=== PATIENT | female | born 1975 | race Caucasian/White ===

== ENCOUNTER 2019-07-20 09:30 | Emergency (ER) | payer OTHER ==
[~2019-07-20] VITALS: Ht 165.1 cm; Wt 70.3 kg
[2019-07-20] MEDS ORDERED: ACET325 PO (09:54)
[2019-07-20] MEDS ORDERED: Cleocin HCl300 MG PO (10:15)
== END 2019-07-20 10:26 | disposition home or self-care (01) ==
LOC: ER 09:30
DX: K04.7 Periapical abscess without sinus (principal); K02.9 Dental caries, unspecified; Z88.0 Allergy status to penicillin; Z88.2 Allergy status to sulfonamides; Z87.891 Personal history of nicotine dependence
CPT/HCPCS: 99282

== ENCOUNTER 2019-08-05 15:33 | Emergency (ER) | payer OTHER ==
[~2019-08-05] VITALS: Ht 165.1 cm; Wt 69.0 kg
[~2019-08-05 15:33] MED LIST: ACET325 PO; Cleocin HCl300 MG PO
== END 2019-08-05 17:42 | disposition home or self-care (01) ==
LOC: ER 15:33
DX: F32.9 Major depressive disorder, single episode, unspecified (principal); F41.9 Anxiety disorder, unspecified; F43.9 Reaction to severe stress, unspecified; Z72.89 Other problems related to lifestyle; Z88.2 Allergy status to sulfonamides; Z88.0 Allergy status to penicillin; Z87.891 Personal history of nicotine dependence
CPT/HCPCS: 99284

== ENCOUNTER → 2019-12-22 | Outpatient (CLI) | payer OTHER ==
[2019-12-27 08:08] LABS: HPV 16 Negative (Negative); HPV 18 Negative (Negative); HPV OTHER HR TYPES Negative (Negative)
== END | disposition home or self-care (01) ==
LOC: LAB 19:29 → LAB SHORT 19:29
PROVIDERS: Nurse Practitioner Family
DX: Z01.419 Encounter for gynecological examination (general) (routine) without abnormal findings (principal)
CPT/HCPCS: 87624; G0145

== ENCOUNTER 2020-03-08 17:56 | Inpatient (IN) | payer OTHER ==
[~2020-03-08] VITALS: Ht 165.1 cm; Wt 65.8 kg
[~2020-03-08 17:56] MED LIST changes: +ESCI10 PO; +MIRALAX17 GM PO; +MULTI-VITAMIN1 EAC2 PO; +Naltrexone HCl50 MG PO; +OPTISOURCE TAB1 EAC1 PO; +SLOW FE142 M1 PO
[2020-03-08 19:24] LABS: BASOPHILS ABSOLUTE AUTO 0.02 K/mm3 (0.00-0.23); BASOPHILS PERCENT AUTO 0 % (0-2); EOSINOPHILS ABSOLUTE AUTO 0.03 K/mm3 (0.00-0.68); EOSINOPHILS PERCENT AUTO 1 % (0-6); Hematocrit 43.1 % (33.0-51.0); Hemoglobin 13.6 g/dL (11.5-16.0); IMMATURE GRAN ABSOLUTE AUTO 0.01 K/mm3 (0.00-0.10); IMMATURE GRAN PERCENT AUTO 0 % (0-1); LYMPHOCYTES PERCENT AUTO 14 % (21-46); MONOCYTES ABSOLUTE AUTO 0.22 K/mm3 (0.16-1.47); MONOCYTES PERCENT AUTO 3 % (4-13); Mean Corpuscular HGB 25.6 pg (26.0-34.0); Mean Corpuscular HGB Conc 31.6 g/dL (31.5-36.5); Mean Corpuscular Volume 81 fL (80-100); NEUTROPHILS ABSOLUTE AUTO 5.32 K/mm3 (1.96-9.15); NEUTROPHILS PERCENT AUTO 82 % (41-73); Platelet Count 236 K/mm3 (150-400); RDW Coefficient Variation 26.8 % (11.7-14.2); RDW Standard Deviation 74.5 fL (35.1-46.3); Red Blood Cell Count 5.32 M/mm3 (3.80-5.20)
[2020-03-08 19:43] LABS: Alanine Aminotransfer (ALT/SGP 29 U/L (12-78); Albumin, Blood 4.3 g/dL (3.4-5.0); Albumin/Globulin Ratio 1.1 (0.8-1.8); Alk Phos 87 U/L (50-136); Anion Gap 8 mmol/L (6-16); Aspartate Aminotrans (AST/SGOT 21 U/L (12-37); Bilirubin, Total 0.7 mg/dL (0.1-1.0); Blood Urea Nitrogen 5 mg/dL (8-24); Bun/Creatinine Ratio 12.2 (12.0-20.0); CO2, Blood 22 mmol/L (21-32); Calcium, Blood 8.9 mg/dL (8.5-10.1); Chloride, Blood 106 mmol/L (98-108); Creatinine, Blood 0.41 mg/dL (0.40-1.00); Glomerular Filtration Rate >60 (60-); Glucose, Blood 113 mg/dL (70-99); Sodium, Blood 136 mmol/L (136-145); Total Protein, Blood 8.3 g/dL (6.4-8.2)
[2020-03-08 20:34] LABS: Source, Urine Clean Catch
[2020-03-08 20:39] LABS: Bilirubin, Urine Neg (Neg); Blood, Urine Neg (Neg); Glucose Qualitative, Urine Neg (Neg); Ketones, Urine 4+ (Neg); Leukocyte Esterase, Urine Neg (Neg); Nitrite, Urine Neg (Neg); Protein, Urine Neg (Neg); Specific Gravity, Urine 1.015 (1.003-1.022); Urobilinogen, Urine NORM (Normal)
[2020-03-08 20:41] LABS: Appearance, Urine Clear (Clear); Color, Urine Yellow (P-Yellow)
--- NOTE | 2020-03-09 01:32 | NUR ---
ARRIVAL PT ARRIVED TO UNIT FROM ER VIA WHEELCHAIR. PT TRANSFERED SELF TO BED WITH NO ASSISTANCE. STEADY ON HER FEET. [id number]. ORIENTED TO ROOM AND UNIT. EDUCATED CAPTAIN CANNERY TENDER LIGHT AND NPO STATUS. PT REPORTS SOME NAUSEA AND INCREASING PAIN. WILL ADMINISTER MEDS PER ORDERS. PT CURRENTLY RESTING IN BED IN SEMI FOWLERS, DENIES FURTHER NEEDS AT THIS TIME.
--- NOTE | 2020-03-09 04:29 | NUR ---
SHIFT SUMMARY NO CHANGES SINCE ARRIVAL TO UNIT. PT HAS BEEN RESTING IN BED DENIES PAIN AND NAUSEA SINCE MEDICATED PER EMAR. PT NPO PER ORDERS, PAIN LOCALIZED TO ABDOMEN. NO BOWEL MOVEMENTS DURING SHIFT.
[2020-03-09 15:11] LABS: BASOPHILS ABSOLUTE AUTO 0.02 K/mm3 (0.00-0.23); BASOPHILS PERCENT AUTO 0 % (0-2); EOSINOPHILS ABSOLUTE AUTO 0.06 K/mm3 (0.00-0.68); EOSINOPHILS PERCENT AUTO 1 % (0-6); Hematocrit 43.7 % (33.0-51.0); IMMATURE GRAN ABSOLUTE AUTO 0.01 K/mm3 (0.00-0.10); IMMATURE GRAN PERCENT AUTO 0 % (0-1); LYMPHOCYTES ABSOLUTE AUTO 2.04 K/mm3 (0.84-5.20); LYMPHOCYTES PERCENT AUTO 29 % (21-46); MONOCYTES ABSOLUTE AUTO 0.47 K/mm3 (0.16-1.47); MONOCYTES PERCENT AUTO 7 % (4-13); Mean Corpuscular HGB 26.3 pg (26.0-34.0); Mean Corpuscular Volume 82 fL (80-100); Mean Platelet Volume 9.5 fL (9.1-12.4); NEUTROPHILS ABSOLUTE AUTO 4.45 K/mm3 (1.96-9.15); NEUTROPHILS PERCENT AUTO 63 % (41-73); Platelet Count 255 K/mm3 (150-400); RDW Coefficient Variation 26.6 % (11.7-14.2); RDW Standard Deviation 75.2 fL (35.1-46.3); Red Blood Cell Count 5.32 M/mm3 (3.80-5.20); White Blood Cell Count 7.05 K/mm3 (4.00-11.30)
--- NOTE | 2020-03-09 16:54 | NUR ---
DR MARTÍNEZ IN TO SEE; DISCUSSED PLAN OF CARE WITH PATIENT. CONT NPO FOR NOW. PATIENT MEDICATED FOR PAIN WITH ADEQUATE PAIN CONTROL.
--- NOTE | 2020-03-09 18:32 | NUR ---
SHIFT SUMMARY PATIENT STATES ABD PAIN TOLERABLE WITH IV PAIN MED. NO NAUSEA. UP TO BR, VOIDING. CONT NPO. IVF INFUSING W/O PROBS. NO ACUTE CHANGES.
--- NOTE | 2020-03-10 04:55 | NUR ---
SHIFT SUMMARY PT WITH MINIMAL REST THIS SHIFT. AAOX4. DISCOMFORT CONTROLLED WITH 4MG IV MORPHINE Q3-4H + TYLENOL X2 THIS SHIFT FOR SCHUSTER. NO NAUSEA/EMESIS. PT DENIES FLATUS/STOOL THIS SHIFT. GOOD URINE OUTPUT. IVF PER ORDERS. NO ACUTE CHANGES THIS SHIFT. PT CURRENTLY IN BED WATCHING TV, WITH CALL LIGHT IN REACH.
[2020-03-10 05:12] LABS: BASOPHILS ABSOLUTE AUTO 0.03 K/mm3 (0.00-0.23); BASOPHILS PERCENT AUTO 1 % (0-2); EOSINOPHILS ABSOLUTE AUTO 0.13 K/mm3 (0.00-0.68); EOSINOPHILS PERCENT AUTO 3 % (0-6); Hematocrit 39.5 % (33.0-51.0); Hemoglobin 12.2 g/dL (11.5-16.0); IMMATURE GRAN ABSOLUTE AUTO 0.01 K/mm3 (0.00-0.10); IMMATURE GRAN PERCENT AUTO 0 % (0-1); LYMPHOCYTES ABSOLUTE AUTO 1.98 K/mm3 (0.84-5.20); LYMPHOCYTES PERCENT AUTO 42 % (21-46); MONOCYTES ABSOLUTE AUTO 0.34 K/mm3 (0.16-1.47); MONOCYTES PERCENT AUTO 7 % (4-13); Mean Corpuscular HGB 25.6 pg (26.0-34.0); Mean Corpuscular HGB Conc 30.9 g/dL (31.5-36.5); Mean Corpuscular Volume 83 fL (80-100); NEUTROPHILS ABSOLUTE AUTO 2.23 K/mm3 (1.96-9.15); NEUTROPHILS PERCENT AUTO 47 % (41-73); Platelet Count 198 K/mm3 (150-400); RDW Coefficient Variation 26.4 % (11.7-14.2); Red Blood Cell Count 4.76 M/mm3 (3.80-5.20); White Blood Cell Count 4.72 K/mm3 (4.00-11.30)
[2020-03-10 05:25] LABS: Anion Gap 9 mmol/L (6-16); Blood Urea Nitrogen 6 mg/dL (8-24); CO2, Blood 22 mmol/L (21-32); Calcium, Blood 7.8 mg/dL (8.5-10.1); Chloride, Blood 109 mmol/L (98-108); Glomerular Filtration Rate >60 (60-); Glucose, Blood 62 mg/dL (70-99); Potassium, Blood 3.2 mmol/L (3.5-5.5); Sodium, Blood 140 mmol/L (136-145)
[2020-03-10 05:36] LABS: Mean Platelet Volume 9.8 fL (9.1-12.4)
--- NOTE | 2020-03-10 19:10 | NUR ---
ASSESSMENT PT SITTING UP IN BED RESTING. REPORTING DISCOMFORT AT TOLERABLE LEVEL POST PAIN MEDS. NO NAUSEA/EMESIS. ABD SOFT/TENDER WITH PALPATION. IVF INFUSING PER ORDERS. PT INFORMED OF OPEN ROOM AT [facility] AND THE START OF TRANSFER. QUESTIONS ANSWERED. PT DENIES FURTHER NEEDS AT THIS TIME, CALL LIGHT IN REACH.
--- NOTE | 2020-03-10 20:29 | NUR ---
COBRA TRANSFER [facility] WITH AVAILABLE BED AT [address] ROBERT NAVA. COBRA PACKET STARTED + COMPLETED. PT INFORMED OF TRANSFER, SIGNATURE OBTAINED + QUESTIONS ANSWERED. 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 BELONGINGS WITH PT + IV PUMP TRANSPORTED WITH PT. VSS. TRANSFER PACKET COMPLETED + HANDED TO TRANSPORTER MARANDA. PT INDEPENDENT TO TRANSFER TO [facility]. REPORT TO ACCEPTING RN, TERRANCE, AT [facility] CALLED AT 2030. SURGICAL FLOOR NUMBER GIVEN TO ACCEPTING RN FOR FURTHER QUESTIONS/CONCERNS.
== END 2020-03-10 20:35 | disposition short-term general hospital (02) | DRG 390 ==
LOC: ER 17:56 → SURS 03-09 00:57
PROVIDERS: Physician Assistant; Surgery; ADMIT Surgery
DX: K56.1 Intussusception (principal); Z20.828 Contact with and (suspected) exposure to other viral communicable diseases; D50.9 Iron deficiency anemia, unspecified; Z98.84 Bariatric surgery status; Z87.891 Personal history of nicotine dependence; Z79.899 Other long term (current) drug therapy; Z88.2 Allergy status to sulfonamides; Z88.8 Allergy status to other drugs, medicaments and biological substances; Z88.0 Allergy status to penicillin
CPT/HCPCS: 36415; 74177; 80048; 80053; 81003; 81025; 83605; 83690; 85025; 96374-59; 96375; 99285-25; A9270; J2270; J2405; J2765; J7030; Q9967; U0002

== ENCOUNTER → 2020-05-07 | Outpatient (CLI) | payer OTHER ==
[~2020-05-07] MED LIST changes: +OXYC5 PO; +PROM25 PO
[2020-05-07 15:45] LABS: BASOPHILS ABSOLUTE AUTO 0.04 K/mm3 (0.00-0.23); BASOPHILS PERCENT AUTO 1 % (0-2); EOSINOPHILS ABSOLUTE AUTO 0.21 K/mm3 (0.00-0.68); EOSINOPHILS PERCENT AUTO 4 % (0-6); Hematocrit 42.9 % (33.0-51.0); Hemoglobin 13.6 g/dL (11.5-16.0); IMMATURE GRAN ABSOLUTE AUTO 0.01 K/mm3 (0.00-0.10); IMMATURE GRAN PERCENT AUTO 0 % (0-1); LYMPHOCYTES ABSOLUTE AUTO 1.99 K/mm3 (0.84-5.20); LYMPHOCYTES PERCENT AUTO 37 % (21-46); MONOCYTES ABSOLUTE AUTO 0.41 K/mm3 (0.16-1.47); MONOCYTES PERCENT AUTO 8 % (4-13); Mean Corpuscular HGB 29.6 pg (26.0-34.0); Mean Corpuscular HGB Conc 31.7 g/dL (31.5-36.5); Mean Corpuscular Volume 93 fL (80-100); Mean Platelet Volume 10.7 fL (9.1-12.4); NEUTROPHILS ABSOLUTE AUTO 2.79 K/mm3 (1.96-9.15); NEUTROPHILS PERCENT AUTO 51 % (41-73); Platelet Count 212 K/mm3 (150-400); RDW Standard Deviation 47.8 fL (35.1-46.3); White Blood Cell Count 5.45 K/mm3 (4.00-11.30)
== END | disposition home or self-care (01) ==
LOC: LAB 13:06 → LAB SHORT 13:06
PROVIDERS: Internal Medicine Hematology & Oncology
DX: D50.8 Other iron deficiency anemias (principal)
CPT/HCPCS: 85025

== ENCOUNTER → 2021-06-18 | Outpatient (CLI) | payer OTHER | END | disposition home or self-care (01) | LOC: LAB 10:58 → LAB SHORT 10:58 | DX: R82.998 Other abnormal findings in urine (principal) ==

== ENCOUNTER → 2022-05-19 | Outpatient (CLI) | payer OTHER ==
[2022-05-19 18:00] LABS: BASOPHILS ABSOLUTE AUTO 0.05 K/mm3 (0.00-0.23); BASOPHILS PERCENT AUTO 1 % (0-2); EOSINOPHILS ABSOLUTE AUTO 0.17 K/mm3 (0.00-0.68); EOSINOPHILS PERCENT AUTO 3 % (0-6); Hematocrit 32.5 % (33.0-51.0); IMMATURE GRAN ABSOLUTE AUTO 0.02 K/mm3 (0.00-0.10); IMMATURE GRAN PERCENT AUTO 0 % (0-1); LYMPHOCYTES ABSOLUTE AUTO 1.45 K/mm3 (0.84-5.20); LYMPHOCYTES PERCENT AUTO 23 % (21-46); MONOCYTES ABSOLUTE AUTO 0.48 K/mm3 (0.16-1.47); MONOCYTES PERCENT AUTO 8 % (4-13); Mean Corpuscular HGB 19.4 pg (26.0-34.0); Mean Corpuscular HGB Conc 27.7 g/dL (31.5-36.5); Mean Corpuscular Volume 70 fL (80-100); Mean Platelet Volume 11.3 fL (9.1-12.4); NEUTROPHILS ABSOLUTE AUTO 4.04 K/mm3 (1.96-9.15); NEUTROPHILS PERCENT AUTO 65 % (41-73); Platelet Count 314 K/mm3 (150-400); RDW Coefficient Variation 17.8 % (11.7-14.2); RDW Standard Deviation 44.4 fL (35.1-46.3); Red Blood Cell Count 4.64 M/mm3 (3.80-5.20); White Blood Cell Count 6.21 K/mm3 (4.00-11.30)
[2022-05-19 19:56] LABS: Percent Saturation 3.3 % (15.0-50.0)
== END | disposition home or self-care (01) ==
LOC: LAB 14:00 → LAB SHORT 14:00
PROVIDERS: Internal Medicine Hematology & Oncology
DX: D50.9 Iron deficiency anemia, unspecified (principal)
CPT/HCPCS: 82728; 83540; 83550; 85025

== ENCOUNTER 2023-02-28 15:52 | Emergency (ER) | payer OTHER ==
[~2023-02-28] VITALS: Ht 165.1 cm; Wt 72.6 kg
[2023-02-28] MEDS ORDERED: HYDCHL25 PO (16:07)
[2023-02-28 17:55] LABS: BASOPHILS ABSOLUTE AUTO 0.03 K/mm3 (0.00-0.23); BASOPHILS PERCENT AUTO 1 % (0-2); EOSINOPHILS ABSOLUTE AUTO 0.14 K/mm3 (0.00-0.68); EOSINOPHILS PERCENT AUTO 2 % (0-6); Hematocrit 38.4 % (33.0-51.0); Hemoglobin 12.2 g/dL (11.5-16.0); IMMATURE GRAN ABSOLUTE AUTO 0.01 K/mm3 (0.00-0.10); IMMATURE GRAN PERCENT AUTO 0 % (0-1); LYMPHOCYTES ABSOLUTE AUTO 1.27 K/mm3 (0.84-5.20); LYMPHOCYTES PERCENT AUTO 22 % (21-46); MONOCYTES ABSOLUTE AUTO 0.43 K/mm3 (0.16-1.47); MONOCYTES PERCENT AUTO 8 % (4-13); Mean Corpuscular HGB Conc 31.8 g/dL (31.5-36.5); Mean Corpuscular Volume 82 fL (80-100); Mean Platelet Volume 9.5 fL (9.1-12.4); NEUTROPHILS ABSOLUTE AUTO 3.85 K/mm3 (1.96-9.15); NEUTROPHILS PERCENT AUTO 67 % (41-73); Platelet Count 263 K/mm3 (150-400); RDW Coefficient Variation 13.7 % (11.7-14.2); RDW Standard Deviation 40.4 fL (35.1-46.3); Red Blood Cell Count 4.69 M/mm3 (3.80-5.20); White Blood Cell Count 5.73 K/mm3 (4.00-11.30)
[2023-02-28 18:19] LABS: Albumin, Blood 3.6 g/dL (3.4-5.0); Bilirubin, Total 0.4 mg/dL (0.1-1.0); Bun/Creatinine Ratio 18.1 (12.0-20.0); Calcium, Blood 8.3 mg/dL (8.5-10.1); Creatinine, Blood 0.66 mg/dL (0.40-1.00); Globulin, Blood 3.7 g/dL (2.2-4.0); Potassium, Blood 3.7 mmol/L (3.5-5.5); Total Protein, Blood 7.3 g/dL (6.4-8.2)
[2023-02-28 19:40] LABS: Source, Urine Clean Catch
[2023-02-28 19:44] LABS: Appearance, Urine Hazy (Clear); Bilirubin, Urine Neg (Neg); Blood, Urine Neg (Neg); Color, Urine Yellow (P-Yellow); Glucose Qualitative, Urine Neg (Neg); Ketones, Urine Neg (Neg); Leukocyte Esterase, Urine 1+ (Neg); Nitrite, Urine Neg (Neg); Protein, Urine 1+ (Neg); Urobilinogen, Urine NORM (Normal)
[2023-02-28 19:54] LABS: Bacteria Mod /hpf; Squamous Epithelial Cells Mod /hpf (Few)
[2023-02-28 19:56] LABS: Hyaline Casts 0-2 /lpf (0-2); Red Blood Cells, Urine Not Seen /hpf (0-2)
[2023-02-28 20:35] VITALS: BP 114/67
== END 2023-02-28 20:56 | disposition home or self-care (01) ==
LOC: ER 15:52
PROVIDERS: Student in an Organized Health Care Education/Training Program
DX: R55 Syncope and collapse (principal); E86.0 Dehydration; Z88.8 Allergy status to other drugs, medicaments and biological substances; Z88.2 Allergy status to sulfonamides; Z88.0 Allergy status to penicillin; Z79.899 Other long term (current) drug therapy; Z87.891 Personal history of nicotine dependence
CPT/HCPCS: 71046; 80053; 81001; 84484; 84703; 85025; 85379; 87086; 93005; 93010; 96361; 96374; 99284-25; J1885; J7030

== ENCOUNTER 2024-10-31 12:38 | Observation (INO) | payer OTHER ==
[~2024-10-31] VITALS: Ht 165.1 cm; Wt 82.2 kg
[2024-10-31] VITALS (11 sets, daily range): BP systolic 116–132; BP diastolic 50–68
[~2024-10-31 12:38] MED LIST changes: -DOXY100 PO; -MULVITA PO; -SODIUM FERRIC GLUCON IV
[2024-10-31 14:59] LABS: Percent Saturation 2.1 % (15.0-50.0)
[2024-10-31] MEDS ORDERED: Ondansetron HCl 2 MG / ML 2ML Vial IV PRN (15:55)
[2024-10-31] MEDS ORDERED: NS 0 ML IV ONE (16:01)
[2024-10-31] MEDS ORDERED: NS 1,000 ML IV ONE (16:07)
[2024-10-31 16:14] LABS: RETICULOCYTE COUNT PERCENT 1.25 % (0.50-2.50)
[2024-10-31 16:17] LABS: IMMATURE RETIC FRACTION 14.7 % (2.3-16.0); RETIC HGB EQUIVALENT 12.3 pg (28.20-36.60); RETICULOCYTE ABSOLUTE 0.0468 M/mm3 (0.0200-0.1100)
[2024-10-31] MEDS ORDERED: NS 500 ML IV SCH (19:15)
--- NOTE | 2024-10-31 19:42 | NUR ---
SHIFT SUMMARY- PT ALERT AND ORIENTED, ADMITED THROUGH THE ED FOR IRON DEFICIENCY ANEMIA. PT HAS HAD ANAPHYLAXIS WITH IRON INFUSIONS IN THE PAST. HGB WAS 5.7 ON ADMIT. PT COMPLETED HER FIRST UNIT ON MEDICAL FLOOR, STARTED IN ED. SECOND UNIT WAS VERIFIED WITH NIGHT STAPLING MACHINE OPERATOR AND STARTED BY THIS RN. PT IS CURRENTL SITTING UP IN BED EATING JELLO. PT DENIES ANY CHILLS, SOB, OR PAIN AT THIS TIME IN THE INFUSION, RATE SET AT 75ML PER HOUR, NIGHT STAPLING MACHINE OPERATOR AT THE BEDSIDE FOR FIRSTY VITALS. NO CURRENT S&S OF DISTRESS NOTED.
--- NOTE | 2024-10-31 20:05 | NUR ---
[facility]'S INFUSING. PT VS STABLE. DENIES ADVERSE REACTIONS. RATE INCREASED FROM 75ML/HR TO 125ML/ HR.
[2024-10-31] MEDS ORDERED: Docusate Sodium 100 MG Cap PO SCH (21:00)
[2024-11-01 00:14] VITALS: BP 123/63
[2024-11-01] MEDS ORDERED: Acetaminophen 325 MG TABLET PO PRN (00:30)
--- NOTE | 2024-11-01 03:39 | NUR ---
HOUSING ASSISTANT PROPERTY MANAGER SUMMARY: PT A&O X4. INDEPENDENT WITH BED MOBILITY. SBA WITH AMBULATING TO BATHROOM FOR LINE MANAGEMENT. 2ND UNIT OF [facility]'S INITIATED WITH DAY SHIFT RN AT SHIFT CHANGE. NO ASE TO INFUSION. VSS. LSC T/O. PT C/O MOUTH PAIN DURING SHIFT. NEW ORDER OBTAINED FOR TYLENOL 650MG PO Q6H PRN PAIN. EFFECTIVE. BED IN LOWEST POSITION. CALL LIGHT IN REACH. CARES ONGOING.
[2024-11-01 05:02] VITALS: BP 121/68
[2024-11-01 05:40] LABS: Hemoglobin 7.5 g/dL (11.5-16.0); Mean Platelet Volume 9.3 fL (9.1-12.4); Platelet Count 768 K/mm3 (150-400); White Blood Cell Count 7.59 K/mm3 (4.00-11.30)
[2024-11-01 05:41] LABS: Hematocrit 27.2 % (33.0-51.0); Mean Corpuscular HGB Conc 27.6 g/dL (31.5-36.5); Mean Corpuscular Volume 65 fL (80-100); RDW Coefficient Variation 32.2 % (11.7-14.2); RDW Standard Deviation 73.5 fL (35.1-46.3); Red Blood Cell Count 4.16 M/mm3 (3.80-5.20)
[2024-11-01 07:24] VITALS: BP 115/70
[2024-11-01] MEDS ORDERED: Doxycycline Hyclate 100 MG TAB PO SCH (10:22)
[2024-11-01] MEDS ORDERED: SOD FERRIC GLUC COMPLX IV ONE ×2 (11:05→13:00)
[2024-11-01] MEDS ORDERED: NS IV ONE ×2 (11:05→13:00)
[2024-11-01] MEDS ORDERED: SUCROSE IV ONE ×2 (11:05→13:00)
[2024-11-01 11:47] VITALS: BP 118/68
[2024-11-01] MEDS ORDERED: DOXY100 PO (12:37)
[2024-11-01] MEDS ORDERED: MULVITA PO (12:37)
[2024-11-01] MEDS ORDERED: SODIUM FERRIC GLUCON IV (12:38)
[2024-11-01] MEDS ORDERED: NS IV SCH (13:00)
[2024-11-01] MEDS ORDERED: SUCROSE IV SCH (13:00)
[2024-11-01] MEDS ORDERED: SOD FERRIC GLUC COMPLX IV SCH (13:00)
[2024-11-01] MEDS ORDERED: NS 250 ML IV PRN (13:05)
[2024-11-01 13:44] VITALS: BP 125/68
--- NOTE | 2024-11-01 15:11 | NUR ---
DISCHARGE SUMMARY PT DISCHARGED HOME WITH PLAN TO COMPLETE IRON INFUSIONS IN [place]. FIRST INFUSION SCHEDULED FOR 1000 ON 11/02/24. IV REMOVED AND SITES APPEARED WNL. DISCHARGE PACKET REVIEWED WITH PT, MEDICATIONS RX FAXED TO [facility] PER PT REQUEST. PT ESCORTED DOWN TO CAB BY THIS RN, PT AMBULATED INDEPENDENTLY WITHOUT DIFFICULTY.
[2024-11-02] MEDS ORDERED: Sod Ferric Gluc Complx/Sucrose 125 MG in NS 100 ML IV SCH (09:00)
== END 2024-11-01 15:15 | disposition home or self-care (01) ==
LOC: ER 12:38 → ERHOLD 15:53 → MEDS 15:53
PROVIDERS: Emergency Medicine; Physician Assistant; ADMIT Internal Medicine
DX: D50.9 Iron deficiency anemia, unspecified (principal); D75.839 Thrombocytosis, unspecified; Z87.891 Personal history of nicotine dependence; Z88.2 Allergy status to sulfonamides; Z88.8 Allergy status to other drugs, medicaments and biological substances; Z88.0 Allergy status to penicillin; Z79.899 Other long term (current) drug therapy; Z98.84 Bariatric surgery status
CPT/HCPCS: 36415; 36430; 80053; 83540; 83550; 85025; 85027; 85045; 86850; 86900; 86901; 86923; 96374; 96376; 99284-25; A9270; G0378; J2916; J7030; J7040; J7050; P9016

== ENCOUNTER → 2024-10-31 | Outpatient (CLI) | payer OTHER ==
[~2024-10-31] MED LIST changes: +DOXY100 PO; +HYDCHL25 PO; +MULVITA PO; +SODIUM FERRIC GLUCON IV
[2024-10-31 11:56] LABS: BASOPHILS ABSOLUTE AUTO 0.04 K/mm3 (0.00-0.23); BASOPHILS PERCENT AUTO 1 % (0-2); EOSINOPHILS ABSOLUTE AUTO 0.05 K/mm3 (0.00-0.68); EOSINOPHILS PERCENT AUTO 1 % (0-6); Hematocrit 23.1 % (33.0-51.0); IMMATURE GRAN ABSOLUTE AUTO 0.02 K/mm3 (0.00-0.10); IMMATURE GRAN PERCENT AUTO 0 % (0-1); LYMPHOCYTES ABSOLUTE AUTO 1.66 K/mm3 (0.84-5.20); LYMPHOCYTES PERCENT AUTO 28 % (21-46); MONOCYTES ABSOLUTE AUTO 0.76 K/mm3 (0.16-1.47); MONOCYTES PERCENT AUTO 13 % (4-13); Mean Corpuscular HGB Conc 24.7 g/dL (31.5-36.5); Mean Corpuscular Volume 61 fL (80-100); Mean Platelet Volume 9.2 fL (9.1-12.4); NEUTROPHILS ABSOLUTE AUTO 3.37 K/mm3 (1.96-9.15); NEUTROPHILS PERCENT AUTO 57 % (41-73); Platelet Count 883 K/mm3 (150-400); RDW Coefficient Variation 28.8 % (11.7-14.2); RDW Standard Deviation 58.2 fL (35.1-46.3)
[2024-10-31 11:57] LABS: Hemoglobin 5.7 g/dL (11.5-16.0)
[2024-10-31 12:11] LABS: Albumin/Globulin Ratio 0.7 (0.8-1.8); Bilirubin, Total 0.4 mg/dL (0.1-1.0); Bun/Creatinine Ratio 16.9 (12.0-20.0); Calcium, Blood 8.2 mg/dL (8.5-10.1); Creatinine, Blood 0.59 mg/dL (0.40-1.00); Globulin, Blood 4.1 g/dL (2.2-4.0); Total Protein, Blood 7.1 g/dL (6.4-8.2)
== END ==
LOC: LAB SHORT 11:51 → LAB 11:51
PROVIDERS: Physician Assistant Medical
DX: R55 Syncope and collapse (principal)
CPT/HCPCS: 80053; 85025

== ENCOUNTER 2024-11-02 02:09 | Day surgery (SDC) | payer OTHER ==
[~2024-11-02 02:09] MED LIST changes: +DOXY100 PO; +MULVITA PO; +SODIUM FERRIC GLUCON IV; +Sod Ferric Gluc Complx/Sucrose 125 MG in NS 100 ML IV SCH
[2024-11-02 10:36] VITALS: BP 108/66
== END 2024-11-02 12:08 | disposition home or self-care (01) ==
LOC: ATC 02:09
DX: D50.9 Iron deficiency anemia, unspecified (principal); Z98.84 Bariatric surgery status; Z87.891 Personal history of nicotine dependence; Z88.2 Allergy status to sulfonamides; Z88.8 Allergy status to other drugs, medicaments and biological substances
CPT/HCPCS: 96365; J2916

== ENCOUNTER 2024-11-03 03:17 | Day surgery (SDC) | payer OTHER ==
[2024-11-03 13:36] VITALS: BP 121/71
== END 2024-11-03 14:38 | disposition home or self-care (01) ==
LOC: ATC 03:17
DX: D50.9 Iron deficiency anemia, unspecified (principal); Z88.1 Allergy status to other antibiotic agents; Z98.84 Bariatric surgery status; Z87.891 Personal history of nicotine dependence; Z88.2 Allergy status to sulfonamides; Z88.0 Allergy status to penicillin; Z88.8 Allergy status to other drugs, medicaments and biological substances; Z79.899 Other long term (current) drug therapy
CPT/HCPCS: 96365; J2916

== ENCOUNTER 2024-11-04 03:06 | Day surgery (SDC) | payer OTHER ==
[~2024-11-04 03:06] MED LIST changes: -Sod Ferric Gluc Complx/Sucrose 125 MG in NS 100 ML IV SCH
[2024-11-04] MEDS ORDERED: Sod Ferric Gluc Complx/Sucrose 125 MG in NS 100 ML IV SCH (06:00)
[2024-11-04 13:45] VITALS: BP 134/77
== END 2024-11-04 14:43 | disposition home or self-care (01) ==
LOC: ATC 03:06
DX: D50.9 Iron deficiency anemia, unspecified (principal); Z87.891 Personal history of nicotine dependence; Z88.2 Allergy status to sulfonamides; Z88.8 Allergy status to other drugs, medicaments and biological substances; Z88.0 Allergy status to penicillin; Z79.899 Other long term (current) drug therapy; Z98.84 Bariatric surgery status
CPT/HCPCS: 96365; J2916

== ENCOUNTER 2024-11-05 03:58 | Day surgery (SDC) | payer OTHER ==
[2024-11-05] MEDS ORDERED: Sod Ferric Gluc Complx/Sucrose 125 MG in NS 100 ML IV SCH (06:00)
[2024-11-05 08:09] VITALS: BP 141/77
== END 2024-11-05 09:10 | disposition home or self-care (01) ==
LOC: ATC 03:58
DX: D50.9 Iron deficiency anemia, unspecified (principal); Z87.891 Personal history of nicotine dependence; Z88.2 Allergy status to sulfonamides; Z88.0 Allergy status to penicillin; Z88.8 Allergy status to other drugs, medicaments and biological substances; Z79.899 Other long term (current) drug therapy
CPT/HCPCS: 96365; J2916